=== PATIENT | female | born 1950 ===

== ENCOUNTER 2022-06-21 13:16 | Inpatient (IN) ==
[~2022-06-21 13:16] MED LIST: Buffered Lidocaine 1% SYRIN 1 ml INTRADERM ONE; Dexamethasone IV 4 MG/ML VIAL 1 ml VIAL ONE; Lactated Ringers 1000 ml BAG 1,000 ML IV SCH; Lidocaine 2% PF 5 ML VIAL ONE; Midazolam 2 mg/2 ml VIAL 1 mg/ml 2 ml VIAL (2 mg) ONE; Naloxone 0.4 mg VIAL 0.4 mg/ml 1 ml VIAL IV PRN; Ondansetron 4 mg VIAL 2 MG/ML 2 ml VIAL IV PRN; Ondansetron 4 mg VIAL 2 MG/ML 2 ml VIAL ONE; Propofol 10 MG/ML 20 ML BTL ONE; fentaNYL 100 mcg/2 ml 50 MCG/ML VIAL IV PRN; fentaNYL 100 mcg/2 ml 50 MCG/ML VIAL ONE
[2022-06-21] MEDS ORDERED: Lidocaine 2% PF 5 ML VIAL ONE (14:04)
[2022-06-21] MEDS ORDERED: Dexamethasone IV 4 MG/ML VIAL 1 ml VIAL ONE (14:04)
[2022-06-21] MEDS ORDERED: Bupivacaine 0.5% W/EPI SDV 10 ML VIAL INJ ONE (14:06)
[2022-06-21] MEDS ORDERED: Bupivacaine 0.5% 50 ML MDV VIAL ONE (14:06)
[2022-06-21] MEDS ORDERED: ceFAZolin 2 GM PREMIX 2 GM/50 ML BAG ONE (14:15)
[2022-06-21] MEDS ORDERED: Phenylephrine IV 10 MG/ML 1 ml VIAL ONE (16:29)
[2022-06-21] MEDS ORDERED: Acetaminophen IV 1 GM/100ML 1,000 MG/100 ML BAG IV ONE (16:37)
[2022-06-21] MEDS ORDERED: Ondansetron 4 mg VIAL 2 MG/ML 2 ml VIAL IV PRN (19:59)
[2022-06-21] MEDS ORDERED: Lactated Ringers 1000 ml BAG 1,000 ML IV SCH (20:00)
[2022-06-21] MEDS ORDERED: PERPHENAZINE 4 MG PO SCH (21:00)
[2022-06-21] MEDS: CMC:Simvastatin 10 mg TAB (NF) PO SCH (23:18)
[2022-06-22 01:42] LABS: Calcium 9.1 mg/dL (8.6-10.3); Potassium 3.7 mmol/L (3.5-5.0); eGFR CKD-EPI 92.7 (>60)
[2022-06-22] MEDS: Cholecalciferol (VIT D3) 1,000 unit TAB PO SCH (10:25)
[2022-06-22] MEDS: HYDROcodone/ACETAMIN 5/325 mg TAB PO PRN (13:17)
[2022-06-22] MEDS: Enoxaparin 40 MG/0.4 ML SYR SUBCUT SCH (17:35)
[2022-06-22] MEDS: CMC:Simvastatin 10 mg TAB (NF) PO SCH (21:35)
[2022-06-23] MEDS: Cholecalciferol (VIT D3) 1,000 unit TAB PO SCH (09:58)
[2022-06-23] MEDS: HYDROcodone/ACETAMIN 5/325 mg TAB PO PRN (10:00)
[2022-06-23] MEDS: Enoxaparin 40 MG/0.4 ML SYR SUBCUT SCH (10:02)
[2022-06-23] MEDS: CMC:Simvastatin 10 mg TAB (NF) PO SCH (20:14)
[2022-06-24] MEDS: Cholecalciferol (VIT D3) 1,000 unit TAB PO SCH (10:48)
[2022-06-24] MEDS: Enoxaparin 40 MG/0.4 ML SYR SUBCUT SCH (10:49)
[2022-06-24] MEDS: CMC:Simvastatin 10 mg TAB (NF) PO SCH (21:55)
[2022-06-25] MEDS: Cholecalciferol (VIT D3) 1,000 unit TAB PO SCH (08:17)
[2022-06-25] MEDS: Enoxaparin 40 MG/0.4 ML SYR SUBCUT SCH (08:18)
[2022-06-25 12:14] VITALS: BP 135/60
== END 2022-06-25 13:35 | DRG 511 ==
LOC: OR 13:16 → INTOOBSV 21:29 → MEDTELE 21:29
PROVIDERS: ADMIT Orthopaedic Surgery Sports Medicine; ATTEND Orthopaedic Surgery Sports Medicine

== ENCOUNTER 2024-07-18 18:09 | Inpatient (IN) ==
[2024-07-18 18:45] LABS: Albumin 3.8 g/dL (3.5-5.7); Albumin/Globulin Ratio 1.2 (1-3); C Reactive Protein 24.4 mg/L (<8.01); Calcium 9.4 mg/dL (8.6-10.3); Creatinine, Serum 1.08 mg/dL (0.51-0.95); Globulin 3.1 g/dL (2-4); Potassium 3.9 mmol/L (3.5-5.0); Total Bilirubin 0.8 mg/dL (0.2-1.0); Total Protein 6.9 g/dL (6.4-8.9); eGFR CKD-EPI 54.2 (>60)
[2024-07-18] MEDS ORDERED: Norepinephrine 4 MG/250mL D5W 4,000 MCG/250 ML BAG IV ONE (19:45)
[2024-07-18] MEDS: DEXTROSE IV SCH (19:50)
[2024-07-18] MEDS: Norepinephrine 4 MG/250mL NS 4,000 MCG/250 ML BAG IV SCH (19:50)
[2024-07-18] MEDS: NOREPINEPHRINE IV SCH (19:50)
[2024-07-18 20:32] LABS: ABS Lymphocytes 0.6 10^3/uL (1.0-4.8); ABS Neutrophils 13.2 10^3/uL (1.5-7.6); ABS Nucleated RBC 0.01 10^3/ul; Hematocrit 40.1 % (35-45); Hemoglobin 13.6 g/dL (11.5-14.3); Lymphocyte % 4.3 %; Mean Corpuscular Hemoglobin 33.1 pg (27-33); Mean Corpuscular Hgb Conc 33.9 g/dL (31-36); Mean Corpuscular Volume 97.5 fL (80-97); Mean Platelet Volume 9.6 fL (7.5-11.2); Nucleated Red Blood Cells % 0.1 %/100WBC (0.0-0.8); Platelet Count 217 10^3/uL (150-450); Red Blood Count 4.11 10^6/uL (3.63-4.92); Red Cell Distribution Width 15.6 % (12-17); White Blood Count 14.8 10^3/uL (3.8-11.8)
[2024-07-18 21:31] LABS: Magnesium 1.7 mg/dL (1.9-2.7); Phosphorus 3.1 mg/dL (2.5-5.0)
[2024-07-18] MEDS ORDERED: Metoprolol Tartrate 5 mg VIAL 5 ml VIAL (1 mg/ml) IV PRN (22:01)
[2024-07-18 22:04] LABS: ABS Lymphocytes 0.7 10^3/uL (1.0-4.8); ABS Monocytes 0.7 10^3/uL (0.0-0.9); ABS Neutrophils 12.4 10^3/uL (1.5-7.6); ABS Nucleated RBC 0.01 10^3/ul; Hematocrit 39.4 % (35-45); Hemoglobin 13.1 g/dL (11.5-14.3); Lymphocyte % 5.2 %; Mean Corpuscular Hemoglobin 32.3 pg (27-33); Mean Corpuscular Hgb Conc 33.3 g/dL (31-36); Mean Corpuscular Volume 97.1 fL (80-97); Mean Platelet Volume 9.5 fL (7.5-11.2); Nucleated Red Blood Cells % 0.1 %/100WBC (0.0-0.8); Platelet Count 226 10^3/uL (150-450); Red Blood Count 4.05 10^6/uL (3.63-4.92); Red Cell Distribution Width 15.6 % (12-17); White Blood Count 13.8 10^3/uL (3.8-11.8)
[2024-07-18] MEDS: Heparin DRIP 25,000 UNITS BAG 25,000 UNITS/250 ML BAG IV SCH (22:23)
[2024-07-18] MEDS: Heparin DRIP 25,000 UNITS BAG 25,000 UNITS/250 ML BAG IV ONE (22:24)
[2024-07-18] MEDS: Metoprolol Tartrate 5 mg VIAL 5 ml VIAL (1 mg/ml) IV PRN (22:40)
[2024-07-18] MEDS: Metoprolol Tartrate 5 mg VIAL 5 ml VIAL (1 mg/ml) ONE (22:41)
[2024-07-18 22:50] LABS: Creatinine, Serum 1.29 mg/dL (0.51-0.95); eGFR CKD-EPI 43.8 (>60)
[2024-07-18] MEDS: Heparin 5000 UNITS/ML 1 mL VIAL IV SCH (23:05)
[2024-07-18] MEDS ORDERED: Lorazepam PYXIS KEY PRN (23:24)
[2024-07-18] MEDS ORDERED: Sulfur Hexaflouride MICROSPHR 25 MG VIAL IV PRN (23:44)
[2024-07-18 23:55] LABS: TSH Ultra Thyroid Stim Horm 3.65 mcIU/mL (0.34-5.60)
[2024-07-19] MEDS: LORazepam 2 mg VIAL 1 ml IV PUSH ONE
[2024-07-19] MEDS: Albumin Human 5% 25 GM/500 ML BTL IV ONE (00:06)
[2024-07-19 01:28] LABS: High Sensitivity Troponin 3 Hr 1913 pg/mL (<15)
[2024-07-19] MEDS: Magnesium Sulfate 2 gm BAG 2 GM/50 ML BAG IVPB ONE (01:44)
[2024-07-19] MEDS: Magnesium Sulfate 2 gm BAG 2 GM/50 ML BAG ONE (01:45)
[2024-07-19 05:27] LABS: ABS Lymphocytes 1.1 10^3/uL (1.0-4.8); ABS Monocytes 0.7 10^3/uL (0.0-0.9); ABS Neutrophils 7.5 10^3/uL (1.5-7.6); Hematocrit 36.7 % (35-45); Hemoglobin 12.4 g/dL (11.5-14.3); Lymphocyte % 11.5 %; Mean Corpuscular Hemoglobin 32.9 pg (27-33); Mean Corpuscular Hgb Conc 33.8 g/dL (31-36); Mean Corpuscular Volume 97.5 fL (80-97); Mean Platelet Volume 9.4 fL (7.5-11.2); Platelet Count 178 10^3/uL (150-450); Red Blood Count 3.76 10^6/uL (3.63-4.92); Red Cell Distribution Width 15.3 % (12-17); White Blood Count 9.3 10^3/uL (3.8-11.8)
[2024-07-19] MEDS: Lactated Ringers 1000 ml BAG 500 ML IV ONE (05:30)
[2024-07-19 06:09] LABS: Calcium 8.5 mg/dL (8.6-10.3); Creatinine, Serum 1.18 mg/dL (0.51-0.95); Magnesium 2.4 mg/dL (1.9-2.7); Phosphorus 3.5 mg/dL (2.5-5.0); Potassium 3.6 mmol/L (3.5-5.0); eGFR CKD-EPI 48.8 (>60)
[2024-07-19] MEDS: cefTRIAXone 2 gm/50 mL D5W 2 GM/50 ML BAG IV SCH (06:14)
[2024-07-19] MEDS: KCL 20 MEQ/100 ML IVPREMIX 20 MEQ/100 ML BAG IV SCH (10:49)
[2024-07-19] MEDS: Digoxin IV 0.5 MG/2 ML AMP (0.25 MG/ML) IV SLOW PU ONE ×2 (10:53→16:29)
[2024-07-19 17:16] LABS: Urine Appearance Turbid; Urine Bacteria 2+ /HPF (Absent); Urine Bilirubin Negative (Negative); Urine Blood 3+ (Negative); Urine Color Yellow; Urine Glucose Trace (Negative); Urine Granular Casts Present /LPF (Absent); Urine Ketones Trace (Negative); Urine Nitrite Negative (Negative); Urine Protein 2+ (>=100 mg/dL) (Negative); Urine Red Blood Cell 3+(>10/hpf) /HPF (0-Trace); Urine Renal Epithelial Cells Present /HPF (Absent); Urine Specific Gravity >1.050 (1.002-1.030); Urine Squamous Epithelial Cell Present /HPF (Absent); Urine Transitional Epithelial Present /HPF (Absent); Urine Urobilinogen Negative (Negative); Urine White Blood Cell 2+(11-20/hpf) /HPF (0-Trace)
[2024-07-19] MEDS: Perphenazine 8 mg TAB (NF) PO SCH (20:03)
[2024-07-19] MEDS ORDERED: Perphenazine 8 mg TAB (NF) PO SCH (21:00)
[2024-07-20 04:26] LABS: Hematocrit 35.8 % (35-45); Mean Corpuscular Hemoglobin 32.7 pg (27-33); Mean Corpuscular Hgb Conc 33.6 g/dL (31-36); Mean Corpuscular Volume 97.5 fL (80-97); Red Blood Count 3.67 10^6/uL (3.63-4.92); Red Cell Distribution Width 15.6 % (12-17); White Blood Count 8.4 10^3/uL (3.8-11.8)
[2024-07-20 04:54] LABS: Calcium 8.3 mg/dL (8.6-10.3); Creatinine, Serum 0.93 mg/dL (0.51-0.95); eGFR CKD-EPI 64.9 (>60)
[2024-07-20] MEDS: Digoxin IV 0.5 MG/2 ML AMP (0.25 MG/ML) IV SLOW PU ONE (06:11)
[2024-07-20] MEDS: Digoxin IV 0.5 MG/2 ML AMP (0.25 MG/ML) ONE (06:19)
[2024-07-20 06:30] LABS: ABS Basophils 0.1 10^3/uL (0.0-0.1); ABS Eosinophils 0.3 10^3/uL (0.0-0.5); ABS Lymphocytes 1.3 10^3/uL (1.0-4.8); ABS Monocytes 0.7 10^3/uL (0.0-0.9); ABS Nucleated RBC 0.01 10^3/ul; Eosinophil % 3.3 %; Lymphocyte % 15.9 %; Mean Platelet Volume 9.6 fL (7.5-11.2); Nucleated Red Blood Cells % 0.1 %/100WBC (0.0-0.8); Platelet Count 174 10^3/uL (150-450)
[2024-07-20 09:25] LABS: Magnesium 2.2 mg/dL (1.9-2.7)
[2024-07-20] MEDS: Metoprolol Tartrate 5 mg VIAL 5 ml VIAL (1 mg/ml) IV SCH (09:59)
[2024-07-20] MEDS ORDERED: .Amiodarone 24HR ONLY IV Protocol Order Note IV ONE (11:01)
[2024-07-20] MEDS: Amiodarone 150 mg IVPREMIX 150 MG/100 ML BAG IV ONE (11:42)
[2024-07-20] MEDS: Amiodarone 360 MG IVPREMIX 360 MG/200 ML BAG IV SCH ×2 (12:00→18:37)
[2024-07-21 05:08] LABS: Calcium 8.2 mg/dL (8.6-10.3); Creatinine, Serum 0.64 mg/dL (0.51-0.95); eGFR CKD-EPI 93.3 (>60)
[2024-07-21 05:41] LABS: ABS Basophils 0.1 10^3/uL (0.0-0.1); ABS Eosinophils 0.1 10^3/uL (0.0-0.5); ABS Monocytes 0.5 10^3/uL (0.0-0.9); ABS Neutrophils 4.8 10^3/uL (1.5-7.6); ABS Nucleated RBC 0.01 10^3/ul; Eosinophil % 1.6 %; Hematocrit 34.9 % (35-45); Hemoglobin 11.6 g/dL (11.5-14.3); Large Platelets Present; Lymphocyte % 14.8 %; Mean Corpuscular Hemoglobin 32.3 pg (27-33); Mean Corpuscular Hgb Conc 33.3 g/dL (31-36); Mean Corpuscular Volume 97.1 fL (80-97); Mean Platelet Volume 9.5 fL (7.5-11.2); Nucleated Red Blood Cells % 0.1 %/100WBC (0.0-0.8); Platelet Count 158 10^3/uL (150-450); Red Cell Distribution Width 15.3 % (12-17); White Blood Count 6.5 10^3/uL (3.8-11.8)
[2024-07-21] MEDS: Amiodarone 400 mg TAB PO SCH ×2 (09:39→12:06)
[2024-07-21] MEDS: Enoxaparin 100 MG/ML SYR SUBCUT SCH (09:55)
[2024-07-21] MEDS: Furosemide 40 mg/4 ml IV VIAL IV SLOW PU ONE (11:08)
[2024-07-21] MEDS ORDERED: Sulfur Hexaflouride MICROSPHR 25 MG VIAL IV PRN (16:51)
[2024-07-22] MEDS: Metoprolol Tartrate 5 mg VIAL 5 ml VIAL (1 mg/ml) IV PRN (06:07)
[2024-07-22 07:22] LABS: Calcium 8.3 mg/dL (8.6-10.3); Creatinine, Serum 0.68 mg/dL (0.51-0.95); Magnesium 1.8 mg/dL (1.9-2.7); Potassium 3.5 mmol/L (3.5-5.0); eGFR CKD-EPI 91.9 (>60)
[2024-07-22 07:34] LABS: Hematocrit 36.3 % (35-45); Hemoglobin 12.5 g/dL (11.5-14.3); Mean Corpuscular Hemoglobin 33.5 pg (27-33); Mean Corpuscular Hgb Conc 34.6 g/dL (31-36); Red Blood Count 3.74 10^6/uL (3.63-4.92); Red Cell Distribution Width 15.2 % (12-17); White Blood Count 5.4 10^3/uL (3.8-11.8)
[2024-07-22 08:03] LABS: ABS Eosinophils 0.2 10^3/uL (0.0-0.5); ABS Lymphocytes 0.8 10^3/uL (1.0-4.8); ABS Monocytes 0.5 10^3/uL (0.0-0.9); Eosinophil % 4.4 %; Lymphocyte % 13.8 %; Mean Platelet Volume 10.6 fL (7.5-11.2); Platelet Count 169 10^3/uL (150-450)
[2024-07-22] MEDS: KCL 10 MEQ/50 ML IVPREMIX 10 MEQ/50 ML BAG IV SCH (10:07)
[2024-07-22] MEDS: Potassium Chloride LIQUID 20 MEQ/15 ML LIQUID PO ONE (10:07)
[2024-07-22] MEDS: Magnesium Sulfate 2 gm BAG 2 GM/50 ML BAG IVPB ONE (10:08)
[2024-07-22] MEDS: Furosemide 40 mg/4 ml IV VIAL IV SLOW PU ONE (18:11)
[2024-07-23 07:59] LABS: Hematocrit 39.4 % (35-45); Hemoglobin 13.2 g/dL (11.5-14.3); Mean Corpuscular Hemoglobin 32.8 pg (27-33); Mean Corpuscular Hgb Conc 33.5 g/dL (31-36); Mean Corpuscular Volume 97.9 fL (80-97); Red Blood Count 4.02 10^6/uL (3.63-4.92); Red Cell Distribution Width 15.2 % (12-17); White Blood Count 5.4 10^3/uL (3.8-11.8)
[2024-07-23] MEDS: Furosemide 40 mg/4 ml IV VIAL IV SLOW PU SCH (08:02)
[2024-07-23 08:22] LABS: Calcium 8.1 mg/dL (8.6-10.3); Creatinine, Serum 0.86 mg/dL (0.51-0.95); Magnesium 1.8 mg/dL (1.9-2.7); Potassium 3.9 mmol/L (3.5-5.0); eGFR CKD-EPI 71.3 (>60)
[2024-07-23 08:28] LABS: ABS Eosinophils 0.3 10^3/uL (0.0-0.5); ABS Lymphocytes 0.9 10^3/uL (1.0-4.8); ABS Monocytes 0.7 10^3/uL (0.0-0.9); ABS Neutrophils 3.5 10^3/uL (1.5-7.6); Eosinophil % 5.7 %; Lymphocyte % 16.8 %; Mean Platelet Volume 9.6 fL (7.5-11.2); Nucleated Red Blood Cells % 0.1 %/100WBC (0.0-0.8); Platelet Count 194 10^3/uL (150-450)
[2024-07-23] MEDS: Magnesium Sulfate 2 gm BAG 2 GM/50 ML BAG IVPB ONE (09:46)
[2024-07-23 13:10] VITALS: BP 127/84
[2024-07-23 13:52] LABS: Rapid COVID-19 Molecular Undetected (Undetected)
== END 2024-07-23 14:24 | DRG 281 ==
LOC: SUATTDRO → LABSH 18:09 → ICU 20:07 → SUATTDRO 20:21 → ICU 07-19 08:25 → MED 07-21 14:56
PROVIDERS: ADMIT Internal Medicine; ATTEND Student in an Organized Health Care Education/Training Program